=== PATIENT | male | born 1950 | race Caucasian/White ===

== ENCOUNTER 2022-03-19 09:52 | Outpatient (CLI) | payer OTHER | END 2022-03-19 09:53 | disposition home or self-care (01) | LOC: NUCLEAR 09:52 | PROVIDERS: ATTEND Internal Medicine Cardiovascular Disease | DX: I10 Essential (primary) hypertension (principal) ==

== ENCOUNTER 2025-01-12 11:33 | Outpatient (CLI) | payer OTHER | END 2025-01-12 11:38 | disposition home or self-care (01) | LOC: RAD 11:33 | PROVIDERS: ATTEND Internal Medicine Cardiovascular Disease | DX: I10 Essential (primary) hypertension (principal); J44.9 Chronic obstructive pulmonary disease, unspecified ==